=== PATIENT | male | born 1990 | race African-American/Black ===

== ENCOUNTER 2023-09-14 15:50 | Emergency (ER) | payer SELFPAY ==
[2023-09-14 15:55] VITALS: BP 131/82; PULSE 105; RESP 18; TEMP 36.7; O2SAT 100
--- NOTE | 2023-09-14 17:28 | ED.WOUNDLAC ---
HPI - Wound/Laceration General Chief Complaint: Wound/Laceration Stated Complaint: Wound Time Seen by Provider: 09/14/23 17:28 Focused HPI: This is a 32 year old male that presents to the ER for abscess to the right axilla ongoing over the last 2 days. Denies fever or drainage GENERAL: Well-appearing, well-nourished, and in no acute distress. HEAD: Normocephalic, atraumatic. CHEST: Clear to auscultation. ?No respiratory distress. HEART: Regular rate and rhythm.? NEURO: ?Alert and oriented x3. EXTREMITY: Right axilla with 2cm area of edema and fluctuance Patient screened in triage and initial orders placed.? ?Additional care and disposition to be based upon?diagnostic testing and treatment. Related Data Allergies Allergy/AdvReac Type Severity Reaction Status Date / Time Penicillins Allergy Hives Verified 09/14/23 15:52 Review of Systems Review of Systems: CONSTITUTIONAL: Denies fever SKIN: Reports abscess All systems reviewed & are unremarkable except as noted in HPI and below PMFSH Past Medical History Medical History (Updated 09/14/23 @ 19:38 by Lelo Tucker PA-C) History of hidradenitis suppurativa Social History Social History (Updated 09/14/23 @ 19:38 by Lelo Tucker PA-C) Substance use: never Exam Narrative: GENERAL: Well-appearing, well-nourished, and in no acute distress. HEAD: Normocephalic, atraumatic. EYES: EOMI. CHEST: Clear to auscultation. No respiratory distress. No wheezes rales or rhonchi HEART: Regular rate and rhythm. No murmur heard. Normal peripheral pulses. EXTREMITIES: Normal range of motion. Right axilla with 2cm area of edema with central fluctuance. No lymphangitic streaking SKIN: Warm, dry, no rash. NEURO: No focal deficits. Alert and oriented x3. PSYCH: Normal mood and affect Course Course Emergency Course: Patient agrees with plan of care Procedures Abscess I/D upper extremity: Date of Incision: 09/14/23 Time of Incision: 19:36 Side (if applicable): right Local Anesthetic: lidocaine 1% and with epi Amount of anesthesia used (mL): 2 Technique: incised with #11 blade Irrigation: Yes Packing used?: none (patient refused) I&D Results: Pus and Blood MDM - Wound/Laceration MDM Narrative Medical decision making narrative: Patient presents to the emergency department for an abscess of the right axilla. He is afebrile and nontoxic appearing. Abscess was successfully drained. Patient will be started on oral antibiotics. He is to follow up with primary provider. He was given warnings to return to the ER Differential Diagnosis Differential diagnosis: Likely abscess and other (Cellulitis) Critical Care Time Critical Care Time Critical Care Time: No Discharge Plan Discharge Clinical Impression: Abscess Patient Disposition: Home, Self-Care Condition: Stable Instructions: Antibiotic Form, Abscess (ED) Additional Instructions: Return if symptoms worsen or concerns: any increase in redness, swelling, pain or fever over 101 Take antibiotics as directed. Clean wound with mild soapy water. Apply antibiotic ointment and clean dressing at least three times daily. Warm compresses 3 times a day for 20 minutes each Follow up with primary care in the next 2-3 days for re-evaluation Prescriptions: New doxycycline hyclate 100 mg tablet 100 mg PO BID 14 Days Qty: 28 0RF Follow-up/Referrals: PHYSICIAN,[facility] DEVELOPER [Primary Care Provider] - Anurag Gill MD [Physician] -
[2023-09-14] MEDS: LIDO 1%/EPINEPHRINE 1:100,000 20 ML VIAL 10 ML INFILTRATE (19:35)
[2023-09-14 19:39] VITALS: BP 131/84; PULSE 88; RESP 18; TEMP 36.8; O2SAT 98
--- NOTE | 2023-09-14 19:52 | PC.NURSE ---
Right axilla abscess I & D per Lelo SNEED. Small amount of blood drained. Gauze dressing with triple antibiotic ointment applied.
== END 2023-09-14 19:55 | disposition home or self-care (01) ==
PROVIDERS: Emergency Provider Physician Assistant
DX: L02.411 Cutaneous abscess of right axilla (principal)
CPT/HCPCS: 10060; 99283

== ENCOUNTER 2023-09-18 09:38 | Emergency (ER) | payer SELFPAY ==
[2023-09-18 09:40] VITALS: BP 148/90; PULSE 88; RESP 16; TEMP 36.7; O2SAT 100
--- NOTE | 2023-09-18 10:35 | ED.GENADULT ---
HPI - General Adult General Chief complaint: Skin/Abscess/Foreign Body Stated complaint: armpit abscess Time Seen by Provider: 09/18/23 09:45 History of Present Illness HPI narrative: 32 old male presenting to the emergency department for evaluation of persistent pain in the right axilla. Patient was just seen a few days ago and did have an abscess drained. Patient start taking his doxycycline yesterday. Patient was concerned that Perhaps it was the wrong area had been drained. patient has not yet had follow-up with dermatology for his diagnosis of hidradenitis Related Data Allergies Allergy/AdvReac Type Severity Reaction Status Date / Time Penicillins Allergy Hives Verified 09/18/23 09:39 Review of Systems Review of Systems: All systems reviewed & are unremarkable except as noted in HPI and below PMFSH Past Medical History Medical History (Updated 09/18/23 @ 10:38 by Yrn Boyd MD) History of hidradenitis suppurativa Social History Social History (Updated 09/14/23 @ 19:38 by Lelo Tucker PA-C) Substance use: never Exam Narrative: APPEARANCE: Well appearing, no pain, no distress, well-nourished. HEAD: normocephalic, atraumatic. EYES: PERRLA/EOMI, conjunctivae clear. NOSE: Normal no drainage EARS:TMS clear with good light reflex. THROAT: Pharynx clear, no exudate. NECK: Supple. No adenopathy, no masses. RESPIRATORY: Airway patent, respirations nonlabored. Clear to auscultation bilaterally, no rales, rhonchi, wheezing. CARDIOVASCULAR: Regular rate and rhythm without murmurs rubs or gallops. ABDOMINAL: Soft, nontender, nondistended, normal bowel sounds MUSCULOSKELETAL: Moves all extremities. Strength/ROM intact, No edema, No calf tenderness. NEURO: Alert. Cranial nerves II through XII intact. Good gait. Good coordination SKIN: some swelling of the right axilla with no abscess amenable to drainage by bedside ultrasound and no palpated fluctuance Course Vital Signs Vital signs: Vital Signs Temperature 98.0 F 09/18/23 09:40 Pulse Rate 88 09/18/23 09:40 Respiratory Rate 16 09/18/23 09:40 Blood Pressure 148/90 H 09/18/23 09:40 Pulse Oximetry 100 09/18/23 09:40 Oxygen Delivery Room Air 09/18/23 09:40 Temperature 98.0 F 09/18/23 09:40 Pulse Rate 88 09/18/23 09:40 Respiratory Rate 16 09/18/23 09:40 Blood Pressure 148/90 H 09/18/23 09:40 Pulse Oximetry 100 09/18/23 09:40 Oxygen Delivery Room Air 09/18/23 09:40 Medical Decision Making MDM Narrative Medical decision making narrative: [age] old male present to the ED for evaluation of his hidradenitis. on bedside ultrasound no abscess was seen that was amenable to drainage. No fluctuance palpated. Patient was provided additional medications for pain control encouraged of close follow-up with dermatology and to continue taking his antibiotics. No additional incision and drainage was performed. Differential Diagnosis Differential Diagnosis: cellulitis, abscess, hidradenitis Vital Signs Vital Signs: Vital Signs Temperature 98.0 F 09/18/23 09:40 Pulse Rate 88 09/18/23 09:40 Respiratory Rate 16 09/18/23 09:40 Blood Pressure 148/90 H 09/18/23 09:40 Pulse Oximetry 100 09/18/23 09:40 Oxygen Delivery Room Air 09/18/23 09:40 Temperature 98.0 F 09/18/23 09:40 Pulse Rate 88 09/18/23 09:40 Respiratory Rate 16 09/18/23 09:40 Blood Pressure 148/90 H 09/18/23 09:40 Pulse Oximetry 100 09/18/23 09:40 Oxygen Delivery Room Air 09/18/23 09:40 Discharge Plan Discharge Clinical Impression: Hidradenitis suppurativa Patient Disposition: Home, Self-Care Condition: Stable Instructions: Antibiotic Form, Hidradenitis Suppurativa (ED) Additional Instructions: Continue your antibiotic as directed. Warm compress as needed. Have close follow-up with dermatology. [facility] Address: [address] [place] [id number] [address]
[2023-09-18] MEDS: HYDROcodone/acetaminophen (*CRX) 5-325 MG TABLET 1 TAB PO (10:51)
== END 2023-09-18 10:57 | disposition home or self-care (01) ==
LOC: ANHED 10:42
PROVIDERS: Emergency Provider Emergency Medicine
DX: L73.2 Hidradenitis suppurativa (principal)
CPT/HCPCS: 99283; A9270